=== PATIENT | female | born 1985 | race Caucasian/White ===

== ENCOUNTER 2024-07-14 09:36 | Outpatient (CLI) | payer OTHER, SELFPAY ==
[2024-07-14 10:11] LABS: Hematocrit 35.4 % (37.0-47.0); Hemoglobin 11.4 g/dL (12.0-15.0); Mean Corpuscular HGB Conc 32.2 g/dl (32-36); Mean Corpuscular Hemoglobin 29.2 pg (26-34); Mean Corpuscular Volume 90.5 fl (80-100); Mean Platelet Volume 10.1 fl (7.4-10.4); Platelet Count Result 298 k/mm3 (150-375); Red Blood Count 3.91 M/mm3 (4.2-5.4); Red Cell Distribution Width 14.1 % (11.5-14.5); White Blood Count 8.7 K/mm3 (4.5-10.0)
[2024-07-14 11:17] LABS: Rapid Plasma Reagin Non-Reactive (NonReactive)
== END 2024-07-14 09:37 | disposition home or self-care (01) ==
LOC: ANHLAB 09:40
PROVIDERS: Visit Provider Obstetrics & Gynecology
DX: Z34.93 Encounter for supervision of normal pregnancy, unspecified, third trimester (principal); Z3A.00 Weeks of gestation of pregnancy not specified
CPT/HCPCS: 36415; 85027; 86592; 86850; 86900; 86901

== ENCOUNTER 2024-07-15 05:32 | Inpatient (IN) | payer OTHER, SELFPAY ==
--- NOTE | 2024-07-13 06:47 | P.HP_ITS ---
H&P: HPI History of Present Illness Date/Time: 07/13/24 06:47 Chief Complaint: Term with previous section Narrative: 38-year-old multiparous patient at39+ weeks gestation confirmed by early visit presents at term for repeat section. Her has been unremarkable. [facility] Family History Family History Other Patient denies significant medical history Social History Social History Substance use: never Spiritual care concerns: No Meds Home Medications and Allergies Home Medications Medication Instructions Recorded Confirmed Type prenat.vits,claude,xwz-tfwo-ihufq 1 tablet 07/08/24 History Allergies Allergy/AdvReac Type Severity Reaction Status Date / Time No Known Allergies Allergy Unknown Unverified 08/27/18 12:36 Exam Const: General: cooperative, healthy appearing and comfortable Nutritional Appearance: average body habitus Orientation/consciousness: oriented to person, oriented to place and oriented to time HENMT: Head: normal to inspection Resp: Effort & Inspection: normal respiratory effort Cardio: Rate: regular rate Rhythm: regular rhythm Heart sounds: S1 normal heart sound present and S2 normal heart sound present GI: Inspection: normal to inspection ( Gravid soft uterus) : External Female Exam: normal external appearance Speculum Exam - Vagina: normal appearance of the vagina Speculum Exam - Cervix: normal appearance of the cervix ( cervix is long thick closed) Assessment and Plan Assessment and plan (1) Term : Code(s): Z34.90 - Encounter for supervision of normal , unspecified, unspecified trimester Status: Acute (2) Previous section: Code(s): Z98.891 - History of uterine scar from previous surgery Status: Acute Assessment and Plan: proceed with repeat low-transverse section
[2024-07-15] VITALS (70 sets, daily range): BP systolic 93–267; BP diastolic 46–227; PULSE 50–267; RESP 14–18; TEMP 36.7–37.3; O2SAT 95–100; BMI 30.5
--- NOTE | 2024-07-15 01:21 | WPDHPUPDATE1 ---
History and Physical Update Update Date/Time: 07/15/24 01:21 History and Physical has been reviewed, including an updated exam of the patient. There are NO changes in the patient's condition. Risks, benefits, and alternatives have been discussed and questions answered. Patient agrees to proceed with procedure.
[2024-07-15] MEDS: ACETAMINOPHEN 500 MG TABLET 1000 MG PO (06:12)
[2024-07-15] MEDS: LACTATED RINGERS 1,000 ML 125 ML IV CONT ×2 (06:35→07:23)
--- NOTE | 2024-07-15 06:52 | P.PNAN_ITS ---
Anes - Initial Pre Proc Eval Procedure: Operation Date: 07/15/24 07:30 Proposed Procedures p Repeat Section - Stanislav Cain MD Date/Time: 07/15/24 06:52 Surgeon: Stanislav Cain MD Pre Op Diagnosis: C/S Patient Data Age: 38 Gender: F Height: 1.7 m Weight: 88.4 kg Allergies Allergy/AdvReac Type Severity Reaction Status Date / Time No Known Allergies Allergy Unknown Unverified 08/27/18 12:36 Home Medications Medication Instructions Recorded Confirmed Type prenat.vits,claude,qjw-xmnr-lxzmw 1 tablet 07/08/24 History hydrocodone 5 mg-acetaminophen 325 1 tablet PO Q4H PRN pain #30 tabs 07/15/24 Rx mg tablet Laboratory Tests 07/15/24 05:51 HIV 1&2 Ab/P24 Ag 4thGn Pending Patient hx anesthesia problems: none Family hx anesthesia problems: none Results Review: All pre-operative results and documents have been reviewed as part of the pre- operative evaluation. [facility] Surgical History Surgical History (Updated 07/15/24 @ 06:52 by Stanislav Beckett MD) Previous section Family History Family History Other Patient denies significant medical history Social History Social History Substance use: never Spiritual care concerns: No Anes - Eval Final PreProcedure Day of Procedure 07/15/24 06:52 Patient weight: normal Heart: regular rate and rhythm Lungs: clear to auscultation Airway: Mallampati scale class II Neurological: alert and oriented Last oral intake: >/= 8 hours ASA classification: II Emergent: no Anesthetic plan: proceed Anesthesia type and monitoring: regional spinal and standard monitoring Results Review: All pre-operative results and documents have been reviewed as part of the pre- operative evaluation. Informed Consent: The patient's anesthetic plan and its attendant risks and benefits were discussed with the patient/family/POA. Questions were solicited and answers provided to the satisfaction of the patient/family/POA.
--- NOTE | 2024-07-15 07:09 | LDADM ---
This patient, Tyrell Dixon, was admitted to Labor/Delivery/Recovery 120 on 07/15/24 at 05:32. Plans for labor, pain management and were discussed with patient. Patient/family oriented to hospital policies and general routines including ID bracelet, bed and alarms, visiting hours, pain management, procedures, bathroom and other care routines, personal items, smoking policy, room service/diet and guest tray routines, security routines, and visiting hours. Patient/Family are encouraged to report perceived risks to care and to ask questions if they do not understand what they are told or what they should do. See OBIX for further documentation.
[2024-07-15 07:28] LABS: HIV 1/2 Ab P24 Ag Result Negative (Negative)
[2024-07-15] MEDS: ONDANSETRON INJ 4 MG/2 ML VIAL IV PUSH (07:28)
[2024-07-15] MEDS: FAMOTIDINE 20 MG/2 ML VIAL IV PUSH (07:29)
[2024-07-15] MEDS: ceFAZolin 2 GM/D5W 50 ML 2 GM/50 ML BAG IVPB (07:42)
--- NOTE | 2024-07-15 07:53 | SUR.OPER ---
FHT's 145 in OR after spinal.
--- NOTE | 2024-07-15 08:26 | P.PCNOB_ITS ---
OB - Delivery Note Procedure Delivery date: 07/15/24 Pre-op diagnosis: Previous Delivery Post-op Diagnosis: Same Induction method: None Delivery monitor: External FHT Prior to decision for section, ACOG/SMFM labor guidelines were considered and discussed with the patient and staff. Decision made to proceed with the section.: Yes Procedure Performed: Repeat Surgeon: Stanislav Cain MD Anesthesia type: Spinal Description of Procedure/Findings: The patient was prepped draped in the normal sterile fashion placed in the supine position. Under excellent spinal anesthetic the abdomen was entered in Pfannenstiel fashion progressive layers of fascia. Fascia incised in midline carried upward outward fashion bilaterally. Underlying muscles sharp dissected retroperitoneal by Iliana clamps. This was entered by sharp dissection. This was carried superiorly and inferiorly the dome of the bladder. Bladder blade was placed. Bladder flap was formed. Bladder blade returned. Low-transverse incision made in the head delivered in the PATRICIA position. Nuchal cord check noted be loose x1 really brought the occiput. Anterior posterior shoulder delivered spontaneously. Cord clamped x2 and cut and infant passed off the table with an excellent cry. U after delivering the placenta and assuring no membranes or debris remained in the uterus, the uterus closed with a continuous running locking 0 Vicryl from lateral edge to lateral edge. This was followed by a 2nd imbricating running locking 0 Vicryl from lateral edge to lateral edge. Hemostasis was assured. Tubes and ovaries appeared within normal limits and uterus returned the abdomen. Hysterotomy incision inspected 1 last time noted be hemostatic. Laps removed and accounted for. The fascia closed with continuous running 0 Vicryl from lateral edge lateral edge. Skin closed with 4 Monocryl and glue. Patient went recovery satisfactory condition. All sponge, needle, instrument counts were correct. There were no immediate complications Specimen: No Estimated Blood Loss: 425 Drains: No Packing: No Pathology: None sent Complications: No immediate complications Condition: Stable Disposition: Floor Surprise Baby Date of : 07/15/24 Time of : 08:05 Gestational Age by Date: 39 gender: Male Weight (pounds): 8 Weight (ounces): 13 presentation: vertex position: Right Occiput Anterior Placenta delivery description: Manual Removal Cord Vessel Description: 3 Vessels, Nuchal Cord and Loose score one minute: 9 score five minutes: 9
--- NOTE | 2024-07-15 08:29 | SUR.PHASEI ---
800 ml remains in IV of 1000 ml LR with 10 units Pitocin- infusing without difficulty.
--- NOTE | 2024-07-15 08:30 | PM.DS ---
DS: Admitting Diagnosis Discharge Date 07/18/2024 Admitting Diagnosis term /previous section DS: Discharge Diagnosis Discharge Diagnosis (1) Term : Code(s): Z34.90 - Encounter for supervision of normal , unspecified, unspecified trimester Status: Acute (2) Previous section: Code(s): Z98.891 - History of uterine scar from previous surgery Status: Acute DS: Summary Hospital Course Reason for hospitalization: patient was admitted on 07/15/2024 for repeat section Hospital Course: patient's hospital course was unremarkable. She remained afebrile. She was up, voiding without difficulty, eating regular diet, ambulating, and generally without complaints. Time Spent with Patient Time attestation: Total time spent providing and/or coordinating discharge services: Exam Const: General: cooperative, healthy appearing and comfortable Nutritional Appearance: average body habitus Orientation/consciousness: oriented to person, oriented to place and oriented to time Resp: Effort & Inspection: normal respiratory effort Cardio: Rate: regular rate Rhythm: regular rhythm Heart sounds: S1 normal heart sound present and S2 normal heart sound present GI: Inspection: normal to inspection and incision ( Wound is clean dry and intact) DS: Data Data Completed and Pending Labs on day of discharge: Labs from last 24 hours 07/15/24 05:51 HIV 1&2 Ab/P24 Ag 4thGn Negative Discharge Plan Discharge Attending physician on discharge: Stanislav Yeh Discharging Clinician: Stanislav Yeh Patient Disposition: Home, Self-Care Activity: may shower, no straining and pelvic rest Diet: regular Wound Care Instructions: follow printed instructions Discharge Instructions: Education: Mom and Baby Guide Given to: Mother Follow-Up: Call your delivering provider's office for an appointment to be seen in: call and make an appointment Mom and baby should come to the [facility] for the follow-up appointment. Appointment Date/Time: July 18, 2024 at 10:00 am What to expect at your follow-up visit: Physical Assessment Call [phone] if you are unable to keep your appointment time. BREAST CARE: * Wear a snug supportive bra. * For engorgement discomfort: Breast Feeding: * Apply warm moist washcloths * Express milk as needed to relieve engorgement * Wear loose clothing Bottle Feeding: * May apply ice packs * For sore nipples: * Identify correct latch-on * Apply warm moist washcloths before and after nursing * Air dry nipples after nursing * May apply Lansinoh cream to nipples ABDOMINAL INCISION: (if applicable) * Allow incision to air dry * Do NOT use lotions for powders on your incision * When showering, allow soap and water to run over the incision, but do not wash incision EPISIOTOMY/PERINEAL CARE: * Until bleeding stops, use your dennis bottle after urinating * Change your pad frequently throughout the day * You may take sitz baths several times a day (fill your bathtub with warm water and soak for 20 minutes.) Do NOT bathe in the water * No tub baths until seen by your physician - You may shower ACTIVITY: * Rest as much as possible. * Do not exercise or lift anything heavier than your baby (such as laundry or other children.) * Avoid stairs or driving as much as possible. * Do not put anything into the vagina. No douching, tampons, or sexual activity until seen by physician. NOTIFY PHYSICIAN IF YOU HAVE ANY QUESTIONS OR IF ANY OF THE FOLLOWING SYMPTOMS OCCUR: * If your episiotomy or incision becomes red, swollen, or more painful than what you have experienced in the hospital. * If your vaginal bleeding becomes foul smelling. * If your vaginal bleeding becomes more heavy than a period or if your blee
--- NOTE | 2024-07-15 09:45 | PC.NURSE ---
Pt has been shivering and unable to obtain accurate BP despite trying different locations and supporting arm. Called Hieu Gallardo CRNA and received order for Demerol.
[2024-07-15] MEDS: MEPERIDINE HCL INJ (*CRX) 50 MG/ML AMPUL 25 MG IV PUSH (09:57)
--- NOTE | 2024-07-15 10:58 | PC.NURSE ---
Patient transferred to post room #291 via stretcher. Support person present. Oriented to unit, room, information board, rooming in, admission packet and security measures. Patient verbalizes understanding.
[2024-07-15] MEDS: KETOROLAC 15 MG/ML VIAL (*BKC) IV PUSH ×2 (13:10→20:26)
[2024-07-15] MEDS: ACETAMINOPHEN 325 MG TABLET 650 MG PO ×2 (13:10→20:26)
[2024-07-15] MEDS: SIMETHICONE 80 MG TAB.CHEW PO ×2 (13:11→20:26)
[2024-07-15] MEDS: LIDOCAINE 5% PATCH 1 PATCH TRANSDERM (13:11)
[2024-07-16] MEDS: KETOROLAC 15 MG/ML VIAL (*BKC) IV PUSH (04:03)
[2024-07-16] MEDS: ACETAMINOPHEN 325 MG TABLET 650 MG PO ×3 (04:03→17:28)
[2024-07-16 04:08] VITALS: BP 96/69; PULSE 73; RESP 16; TEMP 36.5; O2SAT 97
[2024-07-16 05:18] LABS: Basophils Percent Auto 0.4 % (0.2-1.2); Eosinophils Absolute Auto 0.1 K/mm3 (0-0.3); Eosinophils Percent Auto 1.7 % (0-4.4); Hematocrit 31.5 % (37.0-47.0); Hemoglobin 9.8 g/dL (12.0-15.0); Immature Granulocyte Percent A 1.2 % (0-0.5); Lymphocytes Absolute Auto 0.93 K/mm3 (0.9-3.2); Lymphocytes Percent Auto 11.3 % (18.3-44.2); Mean Corpuscular HGB Conc 31.1 g/dl (32-36); Mean Corpuscular Hemoglobin 28.9 pg (26-34); Mean Corpuscular Volume 92.9 fl (80-100); Mean Platelet Volume 10.8 fl (7.4-10.4); Monocytes Absolute Auto 0.9 K/mm3 (0.1-0.6); Monocytes Percent Auto 10.4 % (2.6-8.5); Neutrophils Absolute Auto 6.2 K/mm3 (1.3-6.7); Platelet Count Result 263 k/mm3 (150-375); Red Blood Count 3.39 M/mm3 (4.2-5.4); Red Cell Distribution Width 14.1 % (11.5-14.5); White Blood Count 8.2 K/mm3 (4.5-10.0)
--- NOTE | 2024-07-16 07:30 | WPDANLDPN2 ---
Anes-Prog Note L&D Date/Time: 07/16/24 07:30 Comfortable throughout: section Neuraxial method: spinal Epidural/Spinal procedure site: clean & non-tender Neuro status: Neuro function grossly intact. Cardiovascular status: normal Respiratory status: normal Airway patency: baseline Mental status: baseline Post-Op hydration status: normal Vital Signs: Last Vital Signs Temp 36.5 C 07/16/24 04:08 Pulse 73 07/16/24 04:08 Resp 16 07/16/24 04:08 BP 96/69 L 07/16/24 04:08 Pulse Ox 97 07/16/24 04:08 O2 Del Method Room Air 07/15/24 17:00 Pain score (VAS): 1 I/O: Intake & Output 07/15/24 07/15/24 07/16/24 15:59 23:59 07:59 Intake Total 380 Output Total 1070 700 700 Balance -690 -700 -700 Post-procedural complaints: none Patient feedback: Patient satisfied with anesthetic care.
--- NOTE | 2024-07-16 07:31 | WPDANLDNPN2 ---
Anes-Prog Note L&D-Neuraxial Date/Time: 07/16/24 07:31 Neuraxial medications: intrathecal PF morphine Opiod-related complaints: none Patient feedback: Patient satisfied with post-operative pain management.
[2024-07-16 10:40] VITALS: BP 109/65; PULSE 70; RESP 18; TEMP 36.4; O2SAT 99
[2024-07-16] MEDS: MULTIVIT/MIN/PREN/FOL AC/IRON TABLET 1 TAB PO (10:40)
[2024-07-16] MEDS: IBUPROFEN 600 MG TABLET PO ×2 (10:40→17:29)
[2024-07-16] MEDS: POLYSACCHARIDE IRON COMPLEX 150 MG CAPSULE PO ×2 (10:41→17:27)
[2024-07-16] MEDS: SIMETHICONE 80 MG TAB.CHEW PO ×2 (10:41→17:27)
[2024-07-16] MEDS: DOCUSATE SODIUM 100 MG CAPSULE PO ×2 (10:41→17:27)
--- NOTE | 2024-07-16 11:30 | PC.NURSE ---
Mother verbalizes she is able to independently latch with appropriate positioning and alignment. She denies any nipple discomfort and is responsively . Infant is currently meeting outcomes for weight, output, jaundice, blood sugar and feeding frequencies of 8-12 times in 24 hours. Mother declines any additional assistance or education at this time. Mother is encouraged to call for assistance if her infant doesn?t latch, pain with latching, questions or concerns. Mother voiced understanding of information shared along with the mom/baby guide for an additional resource. Reported to the Primary RN.
--- NOTE | 2024-07-16 11:39 | PM.OBPNVD ---
OB - PN: Subj Subjective Date/time seen: 07/16/24 11:39 Narrative: Pain OK. Tolerating diet. Wants circumcision for son. OB - PN: Obj Data Labs 07/16/24 04:09 Labs: Laboratory Results - last 24 hr 07/16/24 04:09 WBC 8.2 RBC 3.39 L Hgb 9.8 L Hct 31.5 L MCV 92.9 MCH 28.9 MCHC 31.1 L RDW 14.1 Plt Count 263 MPV 10.8 H Immature Gran % (Auto) 1.2 H Neut % (Auto) 75.0 H Lymph % (Auto) 11.3 L [place] % (Auto) 10.4 H Eos % (Auto) 1.7 Baso % (Auto) 0.4 Lymph # (Auto) 0.93 [place] # (Auto) 0.9 H Eos # (Auto) 0.1 Baso # (Auto) 0.0 Abs Immat Gran (auto) 0.10 H Absolute Neuts (auto) 6.2 Absolute Nucleated RBC 0.000 Nucleated RBC % 0.0 OB - PN A/P Plan day: 1 Comments: A: POD#1, doing well. P: Routine care. Reviewed circ. Exam Narrative: AVSS I/O OK ABD soft, nontender, fundus firm. Incision c/d/i. EXT nontender
--- NOTE | 2024-07-16 15:00 | PC.NURSE ---
Mother called this RN to room because infant would not wake to nurse. had circumcision done and received Tylenol. Mother instructed to do skin to skin and allow to rest for a while longer and attempt to nurse after 30 minutes of skin to skin.
--- NOTE | 2024-07-16 15:30 | PC.NURSE ---
Mother called this RN to bedside because she remained unable to arouse infant to nurse. This RN was able to arouse infant and mother was independently able to place on the left breast in football position. Infant is nursing well.
[2024-07-17] MEDS: IBUPROFEN 600 MG TABLET PO ×2 (00:04→08:16)
[2024-07-17] MEDS: ACETAMINOPHEN 325 MG TABLET 650 MG PO ×2 (00:04→08:16)
[2024-07-17 08:15] VITALS: BP 120/76; PULSE 64; RESP 16; TEMP 36.4
[2024-07-17] MEDS: DOCUSATE SODIUM 100 MG CAPSULE PO (08:16)
[2024-07-17] MEDS: SIMETHICONE 80 MG TAB.CHEW PO (08:16)
[2024-07-17] MEDS: MULTIVIT/MIN/PREN/FOL AC/IRON TABLET 1 TAB PO (08:16)
[2024-07-17] MEDS: POLYSACCHARIDE IRON COMPLEX 150 MG CAPSULE PO (08:16)
--- NOTE | 2024-07-17 12:08 | PM.OBPNVD ---
OB - PN: Subj Subjective Date/time seen: 07/17/24 12:08 Narrative: Pain OK. Tolerating diet. Would like to go home. OB - PN: Obj Data Labs 07/16/24 04:09 OB - PN A/P Plan day: 2 Comments: A: POD#2, doing well. P: Home to f/u 4 weeks. Exam Narrative: AVSS ABD soft, nontender, fundus firm. Incision c/d/i. EXT nontender
[2024-07-18 10:27] VITALS: BP 89/65; PULSE 78; RESP 18; TEMP 36.3; O2SAT 99
== END 2024-07-17 13:25 | disposition home or self-care (01) | DRG 788 ==
LOC: ANHLDR 05:41 → ANHOB2 11:45
PROVIDERS: Admitting Provider Obstetrics & Gynecology; Visit Provider Obstetrics & Gynecology
PROC: (CPT 59514; principal; 2024-07-15 07:30)
DX: O34.219 Maternal care for unspecified type scar from previous cesarean delivery (principal); O69.81X0 Labor and delivery complicated by cord around neck, without compression, not applicable or unspecified; Z3A.39 39 weeks gestation of pregnancy; Z37.0 Single live birth
CPT/HCPCS: 36415; 85025; 86703; A9270; G0432; J0690; J1885; J2175; J2274; J2371; J2405; J2590; J7120